=== PATIENT | male | born 1980 | race Caucasian/White ===

== ENCOUNTER 2017-12-04 11:39 | Emergency (ER) | payer SELFPAY ==
[2017-12-04] MEDS ORDERED: 0.9 % SODIUM CHLORIDE 1000ML 1,000 ML IV SCH (11:45)
--- NOTE | 2017-12-04 11:47 | Emergency Department Record ---
History of Present Illness - General Stated Complaint: RONIT Time Seen by Provider: 12/04/17 11:40 Source: Patient, EMS Mode of Arrival: Stretcher Limitations: No limitations - History of Present Illness Initial Comments: 37 yo male presents to ED for evaluation of difficulty in breathing symptoms that began 1 week ago. Patient reports fever and chills, reports progressively worsening over the past week with exertion. Patient reports a history of CHF and sleep apnea, also reports history of DM and HTN. Patient denies history of asthma/COPD. Patient denies lower extremity edema that is changed from previous. MD Complaint: Shortness of breath Onset/Timin -: Week(s) Consistency: Constant Improves With: Oxygen, Rest Worsens With: Exertion Known History Of: Congestive heart failure Associated Symptoms: Denies other symptoms Treatments Prior to Arrival: Oxygen - Related Data Home Oxygen Therapy: No Home Medications Medication Instructions Recorded Confirmed Last Taken Amlodipine Besylate [Norvasc] 10 mg PO DAILY 12/04/17 12/04/17 12/04/17 Atorvastatin Calcium [Lipitor] 40 mg PO DAILY 12/04/17 12/04/17 12/04/17 Clonidine HCl 0.2 mg PO TID 12/04/17 12/04/17 12/04/17 Furosemide 40 mg PO BID 12/04/17 12/04/17 12/04/17 Gabapentin [Neurontin] 400 mg PO TID 12/04/17 12/04/17 12/03/17 Glipizide [Glucotrol Xl] 5 mg PO DAILY 12/04/17 12/04/17 12/04/17 Lisinopril 40 mg PO DAILY 12/04/17 12/04/17 12/04/17 Metoprolol Tartrate [Lopressor] 100 mg PO BID 12/04/17 12/04/17 12/04/17 Potassium Chloride [Klor-Con] 20 meq PO DAILY 12/04/17 12/04/17 12/04/17 Allergies Allergy/AdvReac Type Severity Reaction Status Date / Time bacitracin Allergy RASH Verified 12/04/17 11:53 [From Neosporin ([id number])] morphine Allergy PT UNSURE Verified 12/04/17 11:53 OF REACTION neomycin Allergy RASH Verified 12/04/17 11:53 [From Neosporin ([id number])] polymyxin B Allergy RASH Verified 12/04/17 11:53 [From Neosporin ([id number])] Review of Systems Constitutional: Reports: Chills, Malaise. Denies: Night sweats Eyes: Denies: Eye discharge, Eye pain ENT: Denies: Congestion, Ear pain, Epistaxis Respiratory: Reports: Dyspnea. Denies: Cough Cardiovascular: Reports: Dyspnea on exertion. Denies: Chest pain, Edema Endocrine: Denies: Fatigue, Heat or cold intolerance Gastrointestinal: Denies: Abdominal pain, Nausea, Vomiting Genitourinary: Denies: Incontinence, Retention Musculoskeletal: Denies: Arthralgia, Back pain, Gout, Joint swelling Skin: Denies: Bruising, Change in color Neurological: Denies: Abnormal gait, Confusion, Headache, Seizure Psychiatric: Denies: Anxiety Hematological/Lymphatic: Denies: Anemia, Blood Clots Physical Exam - General General Appearance: Alert, Oriented x3, Cooperative, Moderate distress Limitations: No limitations - Head Head exam: Atraumatic, Normocephalic, Normal inspection Head exam detail: negative: Abrasion, Contusion, Meehan's sign, General tenderness, Hematoma, Laceration - Eye Eye exam: Normal appearance. negative: Conjunctival injection, Periorbital swelling, Periorbital tenderness, Scleral icterus - ENT Ear exam: negative: Auricular hematoma, Auricular trauma Nasal Exam: negative: Active bleeding, Discharge, Dried blood, Foreign body Mouth exam: negative: Drooling, Laceration, Muffled voice, Tongue elevation - Neck Neck exam: Normal inspection. negative: Meningismus, Tenderness - Respiratory Respiratory exam: Normal lung sounds bilaterally. negative: Rales, Respiratory distress, Rhonchi, Stridor - Cardiovascular Cardiovascular Exam: Regular rate, Normal rhythm, Normal heart sounds - GI/Abdominal GI/Abdominal exam: Soft. negative: Rebound, Rigid, Tenderness - Rectal Rectal exam: Deferred - exam: Deferred - Extremities Extremities exam: Normal inspection. negative: Calf tenderness, Pedal edema, Tenderness - Back Back exam: Denies: CVA tenderness (R), CVA tenderness (L) - Neurological Neurological exam: Alert, Normal gait, Oriented X3 - Psychiatric Psychiatric exam: Normal affect, Normal mood - Skin Skin exam: Normal color. negative: Abrasion Type of lesion: negative: abrasion Course - Reevaluation(s) Reevaluation #1: 12/04/17 11:58 EKG: Sinus tachycardia 107 LAD, Q waves III, AVF No acute ST-T wave changes. Reevaluation #2: 12/04/17 12:18 Portable CXR reviewed, no obvious source of the patient's dyspnea is identiifed. ABG and Bipap ordered for continued SOB. WBC 21.2. CO2 17 AG 29 BUN 25/Creatinine 3.2 Troponin 0.223. Reevaluation #3: 12/04/17 12:24 D-Dimer 19.57. [facility] 1-call contacted for transfer to ICU. Heparin 18,000 Unit bolus ordered for possible PE as the patient's CXR is groslly unremarkable for an acute process. Reevaluation #4: 12/04/17 12:37 Lactic Acid 7.3 AST/ALT 1450/1342 LR ordered to infuse followed by Heparin drip. Case was discussed with Dr. Schumacher, will accept at this time. Reevaluation #5: 12/04/17 13:00 Patient and his family member updated on all results thus far, awaiting ICU bed. Patient reports improvment on Bipap. Treatment initiated for CAP vs. PE at this time, ABG pending as well. 12/04/17 13:04 CXR: Heart size and pulmonary vasculature at the upper limits of normal, Chronic changes, nothing acute. 12/04/17 13:10 ABG reviewed: 7.28/23/110/10.8 C/w metabolic acidosis with respiratory compensation. Awaiting ICU bed assignment. 12/04/17 13:17 Bed assignment has been received, EMS called for transport. Patient and family updated, patient reports some improvement in his symptoms on the bipap. Medical Decision Making - Lab Data Result diagrams: 12/04/17 11:40 12/04/17 11:40 Critical Care Time Critical Care Time: Yes Total Critical Care Time: 60 Critical Care Time: Treatment and evaluation of dyspnea with hypoxia, blood gas interpretation, treatment for presumed sepsis and PE, arrangement for transfer to ICU. Disposition Disposition: Transfer Clinical Impression: Hypoxia Dyspnea Qualifiers: Dyspnea type: unspecified Qualified Code(s): R06.00 - Dyspnea, unspecified Disposition: Acute Care Hospital Transfer Transfer To: [facility] Reason For Transfer: Critical Care Accepting Physician: Winsome Time Discussed w/Accepting Physician: 12:48 Condition: (3) Guarded Time of Disposition: 12:31 Quality - Quality Measures Quality Measures: N/A - Blood Pressure Screening Does Patient Have Any of the Following: Active Dx of HTN Blood Pressure Classification: Hypertensive Reading Systolic Measurement: 143 Diastolic Measurement: 122 Screening for High Blood Pressure: Patient Exclusion, Hx of HTN [[id number]]
[2017-12-04 11:49] LABS: HEMATOCRIT 49.7 % (42.0-52.0); HEMOGLOBIN 16.1 gm/dl (14.0-18.0); MEAN CELL VOLUME 78.4 fl (81-97); MEAN CORPUSCULAR HGB CONC 32.4 g/dl (32-36); MEAN PLATELET VOLUME 9.9 fl (7.4-10.4); PLATELET COUNT 223 K/uL (130-400); RED BLOOD COUNT 6.34 M/uL (4.40-5.70); RED CELL DISTRIBUTION WIDTH 15.8 % (11.5-14.5)
[2017-12-04 12:00] LABS: MEAN CORPUSCULAR HEMOGLOBIN 25.3 pg (27-33); WHITE BLOOD COUNT W/O DIFF 21.2 K/uL (4.2-12.2)
[2017-12-04 12:08] LABS: BILIRUBIN,TOTAL 1.2 mg/dL (0.2-1.0); CREATININE 3.2 mg/dL (0.7-1.2); TOTAL PROTEIN 7.8 g/dL (6.6-8.7)
[2017-12-04 12:13] LABS: ALB/GLOB RATIO 1.2 (1.1-1.8); ALBUMIN 4.2 g/dL (4.0-5.0)
[2017-12-04] MEDS ORDERED: HEPARIN SODIUM 1000 UNIT/1 ML 10ML VIAL IVP ONE (12:28)
[2017-12-04] MEDS ORDERED: RINGERS SOLUTION,LACTATED 1,000 ML IV PRN (12:42)
[2017-12-04] MEDS ORDERED: LORAZEPAM 2 MG/ML VIAL IV ONE (12:45)
[2017-12-04] MEDS ORDERED: CEFTRIAXONE SODIUM 1 GM in 0.9 % SODIUM CHLORIDE 100ML 100 ML IVPB ONE (12:46)
[2017-12-04] MEDS ORDERED: HEPARIN SODIUM/D5W 25,000 UNITS/500 ML BAG IV SCH (13:00)
[2017-12-04 13:05] LABS: ALLEN TEST PASS; ARTERIAL BLD GAS O2 SATURATION 96.9 % (95-98); ARTERIAL BLOOD GAS BASE EXCESS -14.2 mmol/L (-2 - 3); ARTERIAL BLOOD GAS HCO3 10.8 mmol/L (18-23); ARTERIAL BLOOD GAS PCO2 23.7 mmHg (35-48); ARTERIAL BLOOD GAS pH 7.28 (7.35-7.45); CARBOXYHEMOGLOBIN 1.2 % (0-1.5); METHEMOGLOBIN 0.1 % (0.0-1.5); O2 HEMOGLOBIN 95.7 % vol (94-99)
[2017-12-04] MEDS ORDERED: ONDANSETRON HCL IV 4 MG/2 ML VIAL IVP ONE ×2 (13:27→13:51)
--- NOTE | 2017-12-05 07:58 | RADIOLOGY REPORT ---
EXAM: CHEST, ONE VIEW HISTORY: DIFFICULTY IN BREATHING FOR THE PAST FEW DAYS. TECHNIQUE: A single AP portable view of the chest was obtained. Comparison: None. FINDINGS: The heart size is probably at about the upper limits of normal allowing for the AP portable technique. Pulmonary vascularity is also at about the upper limits of normal. No acute alveolar infiltrate seen. No pleural effusion or pneumothorax evident. Symmetric density overlying the anterior end of the first ribs bilaterally is probably just some sclerosis in the first costochondral junction. Old films would be useful to confirm. IMPRESSION: 1. THE HEART SIZE AND THE PULMONARY VASCULARITY ARE AT ABOUT THE UPPER LIMITS OF NORMAL. 2. NO DEFINITE ACUTE INFILTRATE SEEN. 3. SLIGHT INCREASED DENSITY IN THE REGION OF THE LUNG APICES BILATERALLY PROBABLY JUST CORRESPONDING TO SOME COSTOCHONDRAL CALCIFICATION ASSOCIATED WITH THE FIRST RIBS BILATERALLY. RECOMMEND COMPARISON WITH OLD FILMS TO CONFIRM A STABLE APPEARANCE. JOB NUMBER: [id number] MTDD
== END 2017-12-04 13:59 | disposition short-term general hospital (02) ==
LOC: ER 11:39
DX: R09.02 Hypoxemia (principal); E87.4 Mixed disorder of acid-base balance; R79.89 Other specified abnormal findings of blood chemistry; I50.9 Heart failure, unspecified; J44.9 Chronic obstructive pulmonary disease, unspecified; I10 Essential (primary) hypertension; E11.9 Type 2 diabetes mellitus without complications; Z79.84 Long term (current) use of oral hypoglycemic drugs
CPT/HCPCS: 99291 ×2; 96365; 96366; 96375; 99292; 83605; 82375; 80053; 82803; 84484; 85379; 85027; 83880; 71045; 36600; 94660; 93005; 93010; J2405; J2060; J7030; J7120